=== PATIENT | female | born 1945 | race Hispanic/Latino ===

== ENCOUNTER 2018-08-29 15:03 | Inpatient (IN) | payer OTHER ==
[~2018-08-29] VITALS: Ht 152.4 cm; Wt 76.0 kg
[2018-08-29 16:08] LABS: EOSINOPHILS % (AUTO) 1.9 % (0.0-8.0); HEMATOCRIT 31.6 % (36-48); LYMPHOCYTES % (AUTO) 17.9 % (21.0-51.0); MEAN CORPUSCULAR HGB CONC 33.7 g/dL (32.0-36.0); MEAN CORPUSCULAR VOLUME 94.7 fL (79-99); MONOCYTES % (AUTO) 5.9 % (3.0-13.0); NEUTROPHILS % (AUTO) 73.3 % (40.0-77.0); PLATELET COUNT (AUTO) 322 K/uL (130-400); RED BLOOD CELL COUNT(AUTO) 3.34 MIL/uL (4.00-5.50); RED CELL DISTRIBUTION WIDTH 13.1 % (11.0-15.5)
[2018-08-29 16:20] LABS: CREATININE 1.6 mg/dL (0.5-1.5); POTASSIUM 4.9 mmol/L (3.5-5.1)
[2018-08-29 16:25] LABS: ALBUMIN 2.5 g/dL (3.5-5.0); BILIRUBIN,TOTAL 0.2 mg/dL (0.2-1.0); TOTAL PROTEIN, SERUM 8.4 g/dL (6.0-8.3)
[2018-08-29] MEDS ORDERED: LABETALOL 20 MG/4 ML DISP.SYRIN IV ONE (19:01)
[2018-08-29] MEDS ORDERED: SODIUM CHLORIDE 0.9% 500ML 500 ML IV ONE (19:01)
[2018-08-29] MEDS ORDERED: SODIUM CHLORIDE 0.9% 1000ML 1,000 ML IV SCH (19:27)
[2018-08-29] MEDS ORDERED: ACETAMINOPHEN 325 MG TAB PO PRN (19:30)
[2018-08-29] MEDS ORDERED: HYDRALAZINE HCL 20 MG/ML VIAL IV PRN (19:30)
[2018-08-29] MEDS ORDERED: ONDANSETRON HCL 4 MG/2 ML VIAL IV PRN (19:30)
[2018-08-29 19:36] LABS: APPEARANCE,URINE Cloudy (CLEAR); BILIRUBIN,URINE Negative (NEGATIVE); COLOR,URINE Yellow (YELLOW); GLUCOSE, URINE (UA) Negative (NEGATIVE); KETONES,URINE Negative (NEGATIVE); LEUKOCYTE ESTERASE ,URINE Negative (NEGATIVE); NITRATE,URINE Negative (NEGATIVE); OCCULT BLOOD,URINE Negative (NEGATIVE); PROTEIN,URINE POS 1+ mg/dL (NEGATIVE)
[2018-08-29 19:45] LABS: BACTERIA,URINE Rare /HPF (None Seen); RBC,URINE 0-1 /HPF (0-1); SQUAMOUS EPITHELIAL CELL,UR Moderate /HPF (0-2); WBC,URINE 0-1 /HPF (0-1)
[2018-08-29] MEDS ORDERED: CLINDAMYCIN 600 MG/D5% WATER 50 ML IV ONE (20:04)
[2018-08-29] MEDS ORDERED: CEFTRIAXONE SODIUM 1 GM ONE (20:04)
[2018-08-29] MEDS ORDERED: SODIUM CHLORIDE 0.9% 1000ML 1,000 ML IV ONE (20:05)
[2018-08-29] MEDS: INSULIN HUMULIN R 100 UNIT/ML 3ML SQ SCH (21:00)
[2018-08-30] MEDS: CLINDAMYCIN 600 MG/D5% WATER 50 ML IV SCH ×4 (03:30→19:30)
[2018-08-30] MEDS ORDERED: CLINDAMYCIN 600 MG/D5% WATER 50 ML IV ONE (08:06)
[2018-08-30] MEDS ORDERED: FAMOTIDINE 20MG TAB 20 MG TAB ONE (08:40)
[2018-08-30] MEDS ORDERED: ENOXAPARIN SODIUM 30 MG/0.3 ML SQ ONE (08:40)
[2018-08-30] MEDS: ENOXAPARIN SODIUM 30 MG/0.3 ML SQ SCH (09:00)
[2018-08-30] MEDS: FAMOTIDINE 20MG TAB 20 MG TAB PO SCH (09:00)
[2018-08-30] MEDS ORDERED: SODIUM CHLORIDE 0.9% 1000ML 1,000 ML IV ONE (13:13)
[2018-08-30] MEDS ORDERED: HYDRALAZINE HCL 20 MG/ML VIAL ONE (13:30)
[2018-08-30 14:45] VITALS: BP 161/77
--- NOTE | 2018-08-30 15:00 | NUR ---
NURSING NOTE Received patient from ER in no distress. Safely assisted to bed. Receiving intravenous normal saline at 100mL/hr to right hand # 20g; site healthy and patent. Patient denied any needs.
[2018-08-30 16:00] VITALS: BP 175/88
[2018-08-30] MEDS ORDERED: METOPROLOL TARTRATE 25 MG TAB PO SCH (18:45)
[2018-08-30 20:00] VITALS: BP 180/81
[2018-08-30 20:45] VITALS: BP 150/81
[2018-08-30] MEDS: INSULIN HUMULIN R 100 UNIT/ML 3ML SQ SCH (21:00)
[2018-08-30] MEDS: METOPROLOL TARTRATE 25 MG TAB PO SCH (21:00)
--- NOTE | 2018-08-30 21:00 | NUR ---
OTHER-SEE NURSES NOTE Patient is on Lopressor 25 mg PO BID. Day shift administered a one time dose of Lopressor 25 mg PO at 1946. Blood pressure at 2044 is at 150/81. Will not administer 2100 dose due to dose being too soon; will continue to monitor patient and blood pressure.
[2018-08-30] MEDS: MORPHINE SULFATE 2 MG/ML 1ML SYG IV PRN (23:16)
[2018-08-31] VITALS: BP 159/79
[2018-08-31 04:00] VITALS: BP 150/68
[2018-08-31] MEDS: CLINDAMYCIN 600 MG/D5% WATER 50 ML IV SCH ×3 (04:44→18:59)
[2018-08-31 06:25] LABS: HEMATOCRIT 29.5 % (36-48); MEAN CORPUSCULAR HEMOGLOBIN 31.9 pg (27.0-33.0); MEAN CORPUSCULAR HGB CONC 33.9 g/dL (32.0-36.0); MEAN CORPUSCULAR VOLUME 94.2 fL (79-99); PLATELET COUNT (AUTO) 327 K/uL (130-400); RED BLOOD CELL COUNT(AUTO) 3.14 MIL/uL (4.00-5.50); RED CELL DISTRIBUTION WIDTH 13.4 % (11.0-15.5); WHITE BLOOD COUNT (AUTO) 7.6 K/uL (4.8-10.8)
[2018-08-31] MEDS: INSULIN HUMULIN R 100 UNIT/ML 3ML SQ SCH ×4 (06:25→21:02)
[2018-08-31 06:40] LABS: CREATININE 1.3 mg/dL (0.5-1.5); POTASSIUM 4.4 mmol/L (3.5-5.1)
[2018-08-31 07:30] VITALS: BP 147/58
[2018-08-31] MEDS: ENOXAPARIN SODIUM 30 MG/0.3 ML SQ SCH (09:35)
[2018-08-31] MEDS: METOPROLOL TARTRATE 25 MG TAB PO SCH ×2 (09:35→20:41)
[2018-08-31] MEDS: FAMOTIDINE 20MG TAB 20 MG TAB PO SCH (09:35)
[2018-08-31 11:00] VITALS: BP 147/69
--- NOTE | 2018-08-31 15:32 | NUR ---
INITIAL MET W PATIENT, ALONE, RONY, LIVES ALONE, HAS A CANE, [facility] PROVIDES TRANSPORT AND WILL PROVIDE TRANSPORT HOME. NO DC NEEDS Addendum: 08/31/18 at 1534 by OLIVIA YBARRA RN CM Amended: Links added.
[2018-08-31 16:00] VITALS: BP 157/68
[2018-08-31 20:00] VITALS: BP 162/76
[2018-09-01] VITALS: BP 165/68
[2018-09-01] MEDS: MORPHINE SULFATE 2 MG/ML 1ML SYG IV PRN (00:04)
[2018-09-01] MEDS: CLINDAMYCIN 600 MG/D5% WATER 50 ML IV SCH ×2 (03:31→12:15)
[2018-09-01 04:00] VITALS: BP 164/76
[2018-09-01] MEDS: INSULIN HUMULIN R 100 UNIT/ML 3ML SQ SCH ×2 (05:55→11:30)
[2018-09-01 06:19] LABS: HEMATOCRIT 30.7 % (36-48); MEAN CORPUSCULAR HEMOGLOBIN 32.4 pg (27.0-33.0); MEAN CORPUSCULAR HGB CONC 34.5 g/dL (32.0-36.0); PLATELET COUNT (AUTO) 280 K/uL (130-400); RED BLOOD CELL COUNT(AUTO) 3.27 MIL/uL (4.00-5.50); RED CELL DISTRIBUTION WIDTH 13.2 % (11.0-15.5); WHITE BLOOD COUNT (AUTO) 8.2 K/uL (4.8-10.8)
[2018-09-01 06:28] LABS: CREATININE 1.3 mg/dL (0.5-1.5); POTASSIUM 4.4 mmol/L (3.5-5.1)
[2018-09-01 07:00] VITALS: BP 140/59
[2018-09-01] MEDS: METOPROLOL TARTRATE 25 MG TAB PO SCH (08:53)
[2018-09-01] MEDS: FAMOTIDINE 20MG TAB 20 MG TAB PO SCH (08:53)
[2018-09-01] MEDS: ENOXAPARIN SODIUM 30 MG/0.3 ML SQ SCH (08:54)
[2018-09-01] MEDS ORDERED: CLIN300C9 PO (09:34)
[2018-09-01] MEDS ORDERED: TYL3 PO (09:36)
[2018-09-01 11:00] VITALS: BP 145/57
[2018-09-01] MEDS ORDERED: AMLO2.5T4 PO (13:56)
--- NOTE | 2018-09-01 15:13 | NUR ---
DISCHARGE PATIENT/DAUGHTER GIVEN DISCHARGE INSTRUCTIONS VIA TEACH BACK. 20G PIV TO RIGHT HAND DISCONTINUED, TIP INTACT. RX AND FAMILY DOCTOR'S LIST GIVEN. PATIENT TO FOLLOW UP WITH PCP. PATIENT STABLE AT THIS TIME. PATIENT TRANSPORTED DOWN STAIRS VIA WHEELCHAIR ACCOMPANIED BY DAUGHTER.
[2018-09-02] MEDS ORDERED: AMLODIPINE BESYLATE 2.5 MG TAB PO SCH (09:00)
== END 2018-09-01 15:13 | disposition home or self-care (01) | DRG 603 ==
LOC: EDH 15:03 → EDHIP 15:04 → EDH 17:49 → 3CH 08-30 14:48
PROVIDERS: ADMIT Internal Medicine; ATTEND Internal Medicine
DX: L03.116 Cellulitis of left lower limb (principal); I10 Essential (primary) hypertension; E11.51 Type 2 diabetes mellitus with diabetic peripheral angiopathy without gangrene; Z89.432 Acquired absence of left foot; Z79.899 Other long term (current) drug therapy; Z79.84 Long term (current) use of oral hypoglycemic drugs
CPT/HCPCS: 36415; 73590; 73610; 73630; 80048; 80053; 81001; 82550; 82948; 83605; 85025; 85027; 87040; 87088; 93005; 93926; 93970; G0378; J0360; J0696; J1650; J1815; J3490; J7030; J7040